=== PATIENT | male | born 1965 | race Hispanic/Latino ===

== ENCOUNTER 2017-01-07 18:17 | Observation (INO) | payer MEDICAID ==
[2017-01-07 18:17] VITALS: BMI 38.0
--- NOTE | 2017-01-07 18:36 | ED PDOC ---
Arrival/HPI - General Chief Complaint: Chest Pain Time Seen by Provider: 01/07/17 18:21 Historian: Patient - History of Present Illness Narrative History of Present Illness (Text): 01/07/17 18:21 Bryan Drummond is a 51 year old male, whose past medical history includes a former smoker, who presents to the emergency department complaining of chest pain today. 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 Patient states that he is otherwise at baseline today. Patient says that he "has not seen a doctor in some time." Patient denies any fevers, vomiting, recent travels, history of blood clots, surgery, or any other complaints at this time. Time/Duration: 4-6 hours Symptom Onset: Gradual Symptom Course: Unchanged Severity Level: Mild Activities at Onset: Light Context: Home Past Medical History - Provider Review Nursing Documentation Reviewed: Yes - Infectious Disease Hx of Infectious Diseases: None - Tetanus Immunization Tetanus Immunization: Unknown - Past Medical History Past Medical History: No Previous - Cardiac Hx Cardiac Disorders: No - Pulmonary Hx Respiratory Disorders: No - Neurological Hx Neurological Disorder: No - HEENT Hx HEENT Disorder: No - Renal Hx Renal Disorder: No - Endocrine/Metabolic Hx Hypothyroidism: Yes - Hematological/Oncological Hx Blood Disorders: No - Integumentary Hx Dermatological Disorder: No - Musculoskeletal/Rheumatological Hx Musculoskeletal Disorders: No - Gastrointestinal Hx Gastrointestinal Disorders: No - Genitourinary/Gynecological Hx Genitourinary Disorders: No - Psychiatric Hx Psychophysiologic Disorder: No Hx Substance Use: No - Past Surgical History Past Surgical History: No Previous - Surgical History Other/Comment: b/l eye surgery. - Anesthesia Hx Anesthesia: No - Suicidal Assessment Feels Threatened In Home Enviroment: No Family/Social History - Physician Review Nursing Documentation Reviewed: Yes Family/Social History: No Known Family HX Smoking Status: Never Smoked Hx Alcohol Use: No Hx Substance Use: No Hx Substance Use Treatment: No Allergies/Home Meds Allergies/Adverse Reactions: Allergies No Known Allergies Allergy (Verified 01/07/17 18:21) Home Medications: Home Meds Medication Instructions Recorded Confirmed Levothyroxine [Synthroid] 0.025 mg PO DAILY 02/29/16 01/07/17 Review of Systems - Physician Review All systems were reviewed & negative as marked: Yes - Review of Systems Constitutional: absent: Fevers, Night Sweats Eyes: absent: Vision Changes ENT: absent: Hearing Changes Respiratory: absent: SOB Cardiovascular: Chest Pain Gastrointestinal: absent: Abdominal Pain Genitourinary Male: absent: Dysuria Musculoskeletal: absent: Arthralgias Skin: absent: Rash Neurological: absent: Headache, Dizziness Endocrine: absent: Diaphoresis Hemo/Lymphatic: absent: Adenopathy Psychiatric: absent: Depression Physical Exam Vital Signs Reviewed: Yes Vital Signs Temp Pulse Resp BP Pulse Ox 01/07/17 22:01 80 16 143/96 H 95 01/07/17 18:29 98.3 F 85 18 155/89 H 95 Temperature: Afebrile Blood Pressure: Hypertensive Pulse: Regular Respiratory Rate: Normal Appearance: Positive for: Well-Appearing, Non-Toxic, Comfortable Pain Distress: None Mental Status: Positive for: Alert and Oriented X 3 - Systems Exam Head: Present: Atraumatic, Normocephalic Pupils: Present: PERRL Extroacular Muscles: Present: EOMI Conjunctiva: Present: Normal Mouth: Present: Moist Mucous Membranes Neck: Present: Normal Range of Motion Respiratory/Chest: Present: Clear to Auscultation, Good Air Exchange. No: Respiratory Distress, Accessory Muscle Use Cardiovascular: Present: Regular Rate and Rhythm, Normal S1, S2. No: Murmurs Abdomen: Present: Normal Bowel Sounds. No: Tenderness, Distention, Peritoneal Signs Back: Present: Normal Inspection Upper Extremity: Present: Normal Inspection. No: Cyanosis, Edema Lower Extremity: Present: Normal Inspection. No: Edema Neurological: Present: GCS=15, CN II-XII Intact, Speech Normal Skin: Present: Warm, Dry, Normal Color. No: Rashes Psychiatric: Present: Alert, Oriented x 3, Normal Insight, Normal Concentration Medical Decision Making ED Course and Treatment: 01/07/17 18:37 Impression: 51 year old male complaining of left-sided chest pain today. Differential Diagnosis included but are not limited to: Plan: -- EKG -- Chest X-ray -- Labs -- Aspirin -- Reassess and disposition Prior Visits: Notes and results from previous visits were reviewed. Patient last seen in the ED on 02/29/16 for "flu-like" symptoms, consisting of sore throat, nasal congestion, cough, and generalized aches and pains for several days. Patient was discharged home. Progress Notes: EKG: Ordered, reviewed, and independently interpreted the EKG. Rate : 85 BPM Rhythm : NSR Interpretation : No ST-segment elevations or depressions, no T-wave inversions, normal intervals. Comparison : No previous EKG for comparison. - Lab Interpretations Lab Results: 01/07/17 18:25 01/07/17 18:25 Lab Results 01/07/17 18:25: TSH 3rd Generation 3.17 01/07/17 18:25: Sodium 144, Potassium 4.3, Chloride 103, Carbon Dioxide 28, Anion Gap 17, BUN 18, Creatinine 1.0, Est GFR ( Amer) > 60, Est GFR (Non- Af Amer) > 60, Random Glucose 80, Calcium 10.1, Magnesium 2.1, Total Bilirubin 0.6, AST 40, ALT 61 H, Alkaline Phosphatase 86, Lactate Dehydrogenase 451, Total Creatine Kinase 210, Troponin I < 0.01, Total Protein 7.4, Albumin 4.6, Globulin 2.8, Albumin/Globulin Ratio 1.7 01/07/17 18:25: PT 11.1, INR 1.03, APTT 31.4 H 01/07/17 18:25: WBC 7.3, RBC 5.52, Hgb 17.4, Hct 49.9, MCV 90.4, MCH 31.5, MCHC 34.9, RDW 13.2, Plt Count 191, MPV 9.4, Gran % 62.4, Lymph % (Auto) 28.4, Schuyler % (Auto) 8.0 H, Eos % (Auto) 1.1 L, Baso % (Auto) 0.1, Gran # 4.57, Lymph # 2.1 , Schuyler # 0.6, Eos # 0.1, Baso # 0.01 I have reviewed the lab results: Yes - RAD Interpretation Radiology Orders: 01/07/17 18:27 CHEST PORTABLE [RAD] Stat - Medication Orders Current Medication Orders: Discontinued Medications Acetaminophen (Tylenol 325mg Tab) 650 mg PO Q6H PRN PRN Reason: Pain, moderate (4-7) Aspirin (Aspirin) 325 mg PO STAT STA Stop: 01/07/17 18:28 Last Admin: 01/07/17 18:48 Dose: 325 mg Aspirin (Aspirin Chewable) 81 mg PO DAILY [facility] [place] Last Admin: 01/08/17 09:44 Dose: 81 mg Famotidine (Pepcid) 20 mg PO BID [facility] Last Admin: 01/08/17 17:52 Dose: 20 mg Levothyroxine Sodium (Synthroid) 25 mcg PO 0600 [facility] [place] Last Admin: 01/08/17 06:00 Dose: 25 mcg Losartan Potassium (Cozaar) 25 mg PO DAILY RED - Scribe Statement The provider has reviewed the documentation as recorded by the Zachary Diego Provider Scribe Attestation: All medical record entries made by the Zachary were at my direction and personally dictated by me. I have reviewed the chart and agree that the record accurately reflects my personal performance of the history, physical exam, medical decision making, and the department course for this patient. I have also personally directed, reviewed, and agree with the discharge instructions and disposition. Disposition/Present on Arrival - Present on Arrival Any Indicators Present on Arrival: No History of DVT/PE: No History of Uncontrolled Diabetes: No Urinary Catheter: No History of Decub. Ulcer: No History Surgical Site Infection Following: None - Disposition Have Diagnosis and Disposition been Completed?: Yes Diagnosis: Chest pain Disposition: HOSPITALIZED Disposition Time: 10:00 Condition: STABLE
[2017-01-07 18:42] LABS: BASO # 0.01 K/mm3 (0.0-2.0); BASO % 0.1 % (0.0-3.0); EOS # 0.1 (0.0-0.7); EOS % 1.1 % (1.5-5.0); GRAN # 4.57 (1.4-6.5); GRAN % 62.4 % (50.0-68.0); HEMATOCRIT 49.9 % (42.0-52.0); LYMPH # 2.1 (1.2-3.4); LYMPH % 28.4 % (22.0-35.0); MEAN CELL VOLUME 90.4 fl (80.0-105.0); MEAN CORPUSCULAR HEMOGLOBIN 31.5 pg (25.0-35.0); MEAN CORPUSCULAR HGB CONC 34.9 g/dl (31.0-37.0); MEAN PLATELET VOLUME 9.4 fl (7.0-11.0); MONO # 0.6 (0.1-0.6); RED CELL DISTRIBUTION WIDTH 13.2 % (11.5-14.5); WHITE BLOOD COUNT 7.3 10^3/ul (4.5-11.0)
[2017-01-07 19:01] LABS: ALB/GLOB RATIO 1.7 (1.1-1.8); ALKALINE PHOSPHATASE 86 U/L (38-133); AST/SGOT 40 U/L (15-59); BILIRUBIN,TOTAL 0.6 mg/dL (0.2-1.3); BLOOD UREA NITROGEN 18 mg/dL (7-21); CALCIUM 10.1 mg/dL (8.4-10.5); CARBON DIOXIDE 28 mmol/L (21-33); CHLORIDE 103 mmol/L (95-110); GFR AFRICAN-AMERICAN > 60; GLUCOSE,RANDOM 80 mg/dL (70-110); MAGNESIUM 2.1 mg/dL (1.7-2.2); POTASSIUM 4.3 mmol/L (3.6-5.0); SODIUM 144 mmol/L (132-148); TOTAL PROTEIN 7.4 g/dL (5.8-8.3)
[2017-01-07 19:09] LABS: TROPONIN I < 0.01 ng/mL
[2017-01-07 19:10] LABS: ALT/SGPT 61 U/L (7-56)
[2017-01-07 19:15] LABS: INR 1.03 (0.93-1.08); PARTIAL THROMBOPLASTIN TIME 31.4 Seconds (23.7-30.8)
--- NOTE | 2017-01-08 03:34 | CP.PCM.HP ---
<Escobar Gresham - Last Filed: 01/08/17 03:46> History of Present Illness - History of Present Illness History of Present Illness: CC: Chest pain HPI: Patient is a 51 year old male with PMH significant for hypothyroidism who presents to [facility] via EMS complaining of chest pain. 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 He described the pain as sharp, mid-sternal, non radiating pain, rated as a 9/10 at onset. He reports sweating at timing of event. Patient reports pain lasted for one hour and has since resolved. Patient denies taking any medication for his symptoms prior to arrival in ED. Patient does indicate he gets short of breath on exertion, most notably walking long distances or going up a flight of stairs. Patient denies cough, nausea, fever, chills, abdominal pain or dizziness. Patient reports he had a previous episodes similar to this last year. He was evaluated and instructed to follow up outpatient. 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 Dalton Lopez Present on Admission - Present on Admission Any Indicators Present on Admission: No History of DVT/PE: No History of Uncontrolled Diabetes: No Urinary Catheter: No Decubitus Ulcer Present: No Review of Systems - Review of Systems All systems: reviewed and no additional remarkable complaints except Review of Systems: previously mentioned in HPI - Cardiovascular Cardiovascular: Chest Pain, Diaphoresis, Dyspnea. absent: Pain Radiating to Arm /Neck/Jaw, Leg Edema - Respiratory Respiratory: Dyspnea. absent: Hemoptysis - Gastrointestinal Gastrointestinal: absent: Abdominal Pain, Change in Bowel Habits Past Patient History - Infectious Disease Hx of Infectious Diseases: None - Tetanus Immunizations Tetanus Immunization: Unknown - Past Social History Smoking Status: Never Smoked Alcohol: None Drugs: Denies - CARDIAC Hx Cardiac Disorders: No - PULMONARY Hx Respiratory Disorders: No - NEUROLOGICAL Hx Neurological Disorder: No - HEENT Hx HEENT Problems: No - RENAL Hx Chronic Kidney Disease: No - ENDOCRINE/METABOLIC Hx Hypothyroidism: Yes - HEMATOLOGICAL/ONCOLOGICAL Hx Blood Disorders: No - INTEGUMENTARY Hx Dermatological Problems: No - MUSCULOSKELETAL/RHEUMATOLOGICAL Hx Falls: No - GASTROINTESTINAL Hx Gastrointestinal Disorders: No - GENITOURINARY/GYNECOLOGICAL Hx Genitourinary Disorders: No - PSYCHIATRIC Hx Substance Use: No - SURGICAL HISTORY Other/Comment: b/l eye surgery. - ANESTHESIA Hx Anesthesia: No Meds Allergies/Adverse Reactions: Allergies Allergy/AdvReac Type Severity Reaction Status Date / Time No Known Allergies Allergy Verified 01/07/17 18:21 Physical Exam - Constitutional Appears: Well - Head Exam Head Exam: ATRAUMATIC, NORMAL INSPECTION, NORMOCEPHALIC - Eye Exam Eye Exam: EOMI, PERRL - ENT Exam ENT Exam: Mucous Membranes Moist - Neck Exam Neck exam: Positive for: Normal Inspection - Respiratory Exam Respiratory Exam: Clear to Auscultation Bilateral, NORMAL BREATHING PATTERN - Cardiovascular Exam Cardiovascular Exam: REGULAR RHYTHM, +S1, +S2 - GI/Abdominal Exam GI & Abdominal Exam: Normal Bowel Sounds, Soft - Rectal Exam Rectal Exam: Deferred - Extremities Exam Extremities exam: Positive for: full ROM, normal inspection, pedal pulses present. Negative for: calf tenderness - Back Exam Back exam: FULL ROM, NORMAL INSPECTION - Neurological Exam Neurological exam: Alert, CN II-XII Intact, Normal Gait, Oriented x3, Reflexes Normal - Psychiatric Exam Psychiatric exam: Normal Affect, Normal Mood - Skin Skin Exam: Dry, Intact, Normal Color, Warm Results - Vital Signs Recent Vital Signs: Last Vital Signs Temp 98.9 F 01/08/17 01:50 Pulse 84 01/08/17 02:00 Resp 22 01/08/17 01:50 BP 147/88 01/08/17 01:50 Pulse Ox 95 01/07/17 22:01 - Labs Result Diagrams: 01/07/17 18:25 01/07/17 18:25 Labs: Laboratory Results - last 24 hr 01/08/17 00:40 Troponin I < 0.01 Assessment & Plan (1) Chest pain Status: Acute - Assessment and Plan (Free Text) Assessment: Patient is a 51 year old male with PMH significant for hypothyroidism who presents to [facility] via EMS complaining of chest pain. Patient initial troponin was negative and EKG showed NSR with no acute changes or ST elevations/ depressions, nor T wave inversions. Patient is admitted for observation for ACS rule out. Plan: 1. Chest Pain r/o ACS - EKG showing no ST segment elevation/depression, nor T wave inversions - CXR showing appropriate inflation b/l, possible infiltrate at right middle lung, cephalization b/l - Initial troponin negative x1 - Trend troponin x2 - CBC, CMP, Mg, Ph, TSH, HgA1c - O2 prn, ASA 81 mg, - Nitrates SL prn - Cardiology consult, appreciate recs 2. Hx of hypothyroidism - Continue home medications GI/DVT ppx - Protonix - SCDs case discussed and reviewed with Dr. Pearson - Date & Time Date: 01/08/17 Time: 00:15 <Migel Pearson - Last Filed: 01/08/17 05:35> Results - Vital Signs Recent Vital Signs: Last Vital Signs Temp 98.9 F 01/08/17 01:50 Pulse 84 01/08/17 02:00 Resp 22 01/08/17 01:50 BP 147/88 01/08/17 01:50 Pulse Ox 95 01/07/17 22:01 - Labs Result Diagrams: 01/07/17 18:25 01/07/17 18:25 Labs: Laboratory Results - last 24 hr 01/08/17 00:40 Troponin I < 0.01 Attending/Attestation - Attestation I have personally seen and examined this patient.: Yes I have fully participated in the care of the patient.: Yes I have reviewed all pertinent clinical information: Yes Notes (Text): 01/08/17 05:19 Patient was seen along with infertility medical assistant when he was in ER bed # 17. Agree with history, physical examination, assessment and plan
[2017-01-08] MEDS ORDERED: Levothyroxine 25 MCG TAB PO SCH (06:00)
[2017-01-08 06:36] LABS: BASO # 0.01 K/mm3 (0.0-2.0); BASO % 0.1 % (0.0-3.0); EOS # 0.1 (0.0-0.7); EOS % 2.1 % (1.5-5.0); GRAN # 3.39 (1.4-6.5); GRAN % 50.5 % (50.0-68.0); HEMATOCRIT 47.8 % (42.0-52.0); LYMPH # 2.5 (1.2-3.4); LYMPH % 37.3 % (22.0-35.0); MEAN CELL VOLUME 90.5 fl (80.0-105.0); MEAN CORPUSCULAR HEMOGLOBIN 30.7 pg (25.0-35.0); MEAN CORPUSCULAR HGB CONC 33.9 g/dl (31.0-37.0); MEAN PLATELET VOLUME 9.4 fl (7.0-11.0); MONO # 0.7 (0.1-0.6); RED CELL DISTRIBUTION WIDTH 13.4 % (11.5-14.5); WHITE BLOOD COUNT 6.7 10^3/ul (4.5-11.0)
[2017-01-08 06:37] LABS: ALB/GLOB RATIO 1.5 (1.1-1.8); ALKALINE PHOSPHATASE 76 U/L (38-133); ALT/SGPT 50 U/L (7-56); AST/SGOT 36 U/L (15-59); BILIRUBIN,TOTAL 0.6 mg/dL (0.2-1.3); BLOOD UREA NITROGEN 17 mg/dL (7-21); CALCIUM 8.8 mg/dL (8.4-10.5); CARBON DIOXIDE 26 mmol/L (21-33); CHLORIDE 106 mmol/L (98-107); GFR AFRICAN-AMERICAN > 60; GLUCOSE,RANDOM 94 mg/dL (70-110); MAGNESIUM 2.3 mg/dL (1.7-2.2); SODIUM 142 mmol/L (132-148); TOTAL PROTEIN 6.6 g/dL (5.8-8.3)
[2017-01-08 06:58] LABS: TROPONIN I < 0.01 ng/mL
[2017-01-08 07:08] VITALS: RESP 20; O2SAT 94
--- NOTE | 2017-01-08 08:22 | RAD ---
HISTORY: cp COMPARISON: 02/29/2016 FINDINGS: LUNGS: No active pulmonary disease. PLEURA: No significant pleural effusion identified, no pneumothorax apparent. CARDIOVASCULAR: Normal. OSSEOUS STRUCTURES: No significant abnormalities. VISUALIZED UPPER ABDOMEN: Normal. OTHER FINDINGS: None. IMPRESSION: No active disease.
[2017-01-08 12:23] LABS: PH,URINE 6.5 (4.7-8.0); URINE BILIRUBIN NEGATIVE (NEGATIVE); URINE BLOOD NEGATIVE (NEGATIVE); URINE GLUCOSE (UA) NEGATIVE (NEGATIVE); URINE KETONE NEGATIVE (NEGATIVE); URINE LEUKOCYTE ESTERASE NEGATIVE Leu/uL (NEGATIVE); URINE PROTEIN NEGATIVE mg/dL (<30 mg/dL); URINE UROBILINOGEN 0.2 E.U./dL (<1 E.U./dL)
[2017-01-08 12:24] LABS: URINE APPEARANCE CLEAR (CLEAR); URINE COLOR YELLOW (YELLOW)
--- NOTE | 2017-01-08 15:07 | CARD ---
APPROVED REPORT EXAM: Two-dimensional and M-mode echocardiogram with Doppler and color Doppler. INDICATION Chest Pain 2D DIMENSIONS Left Atrium (2D)3.7 (1.6-4.0cm)IVSd1.4 (0.7-1.1cm) LVDd4.1 (3.9-5.9cm)PWd1.2 (0.7-1.1cm) LVDs3.3 (2.5-4.0cm)FS (%) 19.6 % LVEF (%)40.6 (>50%) M-Mode DIMENSIONS Aortic Root2.80 (2.2-3.7cm)Aortic Cusp Exc.1.80 (1.5-2.0cm) Aortic Valve AoV Peak Ihtwfyal523.0cm/Marbin Peak GR.8mmHg Mitral Valve MV E Bcuefvyq19.2cm/sMV A Hqzikvnu68.5cm/sE/A ratio0.6 TDI E/Lateral E'0.0E/Medial E'0.0 Tricuspid Valve TR Peak [id number]/sRAP [id number] Peak Gr.9mmHg [id number] LEFT VENTRICLE The left ventricle is normal size. There is borderline to mild concentric left ventricular hypertrophy. The systolic function is mildly impaired. There is global hypokinesis of the left ventricle. Transmitral Doppler flow pattern is Grade I-abnormal relaxation pattern. No left ventricle thrombus noted on this study. RIGHT VENTRICLE The right ventricle is normal size. There is normal right ventricular wall thickness. The right ventricular systolic function is normal. ATRIA The left atrium size is normal. The right atrium size is normal. AORTIC VALVE The aortic valve is normal in structure. No aortic regurgitation is present. There is no aortic valvular stenosis. MITRAL VALVE The mitral valve is normal in structure. There is no mitral valve regurgitation noted. TRICUSPID VALVE The tricuspid valve is normal in structure. There is no tricuspid valve regurgitation noted. GREAT VESSELS The aortic root is normal in size. The IVC collapses <50% with inspiration. PERICARDIAL EFFUSION There is a trace loculated anterior pericardial effusion. <Conclusion> The left ventricle is normal size. There is borderline to mild concentric left ventricular hypertrophy. The systolic function is mildly impaired. There is global hypokinesis of the left ventricle. Transmitral Doppler flow pattern is Grade I-abnormal relaxation pattern.
--- NOTE | 2017-01-08 15:41 | CARD ---
APPROVED REPORT EKG Measurement Heart [id number] <Conclusion> Normal sinus rhythm Voltage criteria for left ventricular hypertrophy Prolonged QT Abnormal ECG
--- NOTE | 2017-01-08 15:41 | CP.PCM.DIS ---
<DEIS MENESES - Last Filed: 01/08/17 19:59> Provider - Provider Date of Admission: 01/07/17 20:34 Attending physician: Jane Stanton MD Primary care physician: Dalton Lopez APN Consults: Cardio: Susanne Time Spent in preparation of Discharge (in minutes): 45 Hospital Course - Lab Results Lab Results: Most Recent Lab Values WBC 6.7 10^3/ul (4.5-11.0) 01/08/17 05:30 RBC 5.28 10^6/uL (3.5-6.1) 01/08/17 05:30 Hgb 16.2 g/dL (14.0-18.0) 01/08/17 05:30 Hct 47.8 % (42.0-52.0) 01/08/17 05:30 MCV 90.5 fl (80.0-105.0) 01/08/17 05:30 MCH 30.7 pg (25.0-35.0) 01/08/17 05:30 MCHC 33.9 g/dl (31.0-37.0) 01/08/17 05:30 RDW 13.4 % (11.5-14.5) 01/08/17 05:30 Plt Count 172 10^3/uL (120.0-450.0) 01/08/17 05:30 MPV 9.4 fl (7.0-11.0) 01/08/17 05:30 Gran % 50.5 % (50.0-68.0) 01/08/17 05:30 Lymph % (Auto) 37.3 % (22.0-35.0) H 01/08/17 05:30 [place] % (Auto) 10.0 % (1.0-6.0) H 01/08/17 05:30 Eos % (Auto) 2.1 % (1.5-5.0) 01/08/17 05:30 Baso % (Auto) 0.1 % (0.0-3.0) 01/08/17 05:30 Gran # 3.39 (1.4-6.5) 01/08/17 05:30 Lymph # 2.5 (1.2-3.4) 01/08/17 05:30 [place] # 0.7 (0.1-0.6) H 01/08/17 05:30 Eos # 0.1 (0.0-0.7) 01/08/17 05:30 Baso # 0.01 K/mm3 (0.0-2.0) 01/08/17 05:30 PT 11.1 Seconds (9.9-11.8) 01/07/17 18:25 INR 1.03 (0.93-1.08) 01/07/17 18:25 APTT 31.4 Seconds (23.7-30.8) H 01/07/17 18:25 Sodium 142 mmol/L (132-148) 01/08/17 05:30 Potassium 4.0 mmol/L (3.6-5.0) 01/08/17 05:30 Chloride 106 mmol/L (98-107) 01/08/17 05:30 Carbon Dioxide 26 mmol/L (21-33) 01/08/17 05:30 Anion Gap 14 (10-20) 01/08/17 05:30 BUN 17 mg/dL (7-21) 01/08/17 05:30 Creatinine 1.0 mg/dL (0.5-1.4) 01/08/17 05:30 Est GFR ( Amer) > 60 01/08/17 05:30 Est GFR (Non-Af Amer) > 60 01/08/17 05:30 Random Glucose 94 mg/dL (70-110) 01/08/17 05:30 Hemoglobin A1c 5.7 % (4.2-6.5) 01/08/17 05:30 Calcium 8.8 mg/dL (8.4-10.5) 01/08/17 05:30 Phosphorus 4.0 mg/dL (2.5-4.5) 01/08/17 05:30 Magnesium 2.3 mg/dL (1.7-2.2) H 01/08/17 05:30 Total Bilirubin 0.6 mg/dL (0.2-1.3) 01/08/17 05:30 AST 36 U/L (15-59) 01/08/17 05:30 ALT 50 U/L (7-56) 01/08/17 05:30 Alkaline Phosphatase 76 U/L (38-133) 01/08/17 05:30 Lactate Dehydrogenase 451 U/L (333-699) 01/07/17 18:25 Total Creatine Kinase 210 U/L (35-230) 01/07/17 18:25 Troponin I < 0.01 ng/mL 01/08/17 05:30 Total Protein 6.6 g/dL (5.8-8.3) 01/08/17 05:30 Albumin 4.0 g/dL (3.0-4.8) 01/08/17 05:30 Globulin 2.6 gm/dL 01/08/17 05:30 Albumin/Globulin Ratio 1.5 (1.1-1.8) 01/08/17 05:30 TSH 3rd Generation 3.17 mIU/mL (0.46-4.68) 01/07/17 18:25 Urine Color Yellow (YELLOW) 01/08/17 12:10 Urine Appearance Clear (CLEAR) 01/08/17 12:10 Urine pH 6.5 (4.7-8.0) 01/08/17 12:10 Ur Specific [place] 1.020 (1.005-1.035) 01/08/17 12:10 Urine Protein Negative mg/dL (<30 mg/dL) 01/08/17 12:10 Urine Glucose (UA) Negative mg/dL (NEGATIVE) 01/08/17 12:10 Urine Ketones Negative mg/dL (NEGATIVE) 01/08/17 12:10 Urine Blood Negative (NEGATIVE) 01/08/17 12:10 Urine Nitrate Negative (NEGATIVE) 01/08/17 12:10 Urine Bilirubin Negative (NEGATIVE) 01/08/17 12:10 Urine Urobilinogen 0.2 E.U./dL (<1 E.U./dL) 01/08/17 12:10 Ur Leukocyte Esterase Negative Gil/uL (NEGATIVE) 01/08/17 12:10 - Hospital Course Hospital Course: Patient is a 51 year old male with PMH significant for hypothyroidism who presents to [facility] ED via EMS complaining of chest pain. 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 He described the pain as sharp, mid-sternal, non radiating pain, rated as a 9/10 at onset. He reported sweating at timing of event. Patient reported pain lasted for one hour and has since resolved. Patient denied taking any medication for his symptoms prior to arrival in ED. Patient does indicate he gets short of breath on exertion, most notably walking long distances or going up a flight of stairs. Patient denied cough, nausea, fever, chills, abdominal pain or dizziness. Patient reported he had a previous episode similar to this last year. In the ED, labs and imaging were obtained. Labs were unremarkable. First troponin was negative. EKG showed no ST segment elevation/depression, nor T wave inversions. CXR showed appropriate inflation b/l, possible infiltrate at right middle lung, cephalization b/l. Pt was admitted for evaluation and treatment for chest pain r/o ACS. Pt was started on ASA and continued on his home synthroid. Troponin trend x2 was negative. TSH was normal. Echo showed EF 40.6%. Lipid were within normal limits. Cardio was consulted and recommendations were appreciated. Today, pt was seen and examined at bedside. Pt states that CP and SOB has subsided. Pt denies n/v/d, chills, fever, abdominal pain, dysuria, polyuria, constipation, CRUZ, and dizziness. Pt discharged and advised to follow up with PMD and cardio out-patient. Discharge Exam - Head Exam Head Exam: ATRAUMATIC, NORMAL INSPECTION, NORMOCEPHALIC - Eye Exam Eye Exam: EOMI, PERRL - ENT Exam ENT Exam: Mucous Membranes Dry - Neck Exam Neck exam: Full Rom - Respiratory Exam Respiratory Exam: Clear to PA & Lateral. absent: Rales, Rhonchi, Wheezes - Cardiovascular Exam Cardiovascular Exam: RRR. absent: Gallop, Rubs, Systolic Murmur - GI/Abdominal Exam GI & Abdominal Exam: Soft. absent: Distended, Guarding, Organomegaly, Rebound, Tenderness - Back Exam Back exam: NORMAL INSPECTION - Neurological Exam Neurological exam: Alert, CN II-XII Intact, Oriented x3 - Psychiatric Exam Psychiatric exam: Normal Affect, Normal Mood - Skin Skin Exam: Dry, Intact, Normal Color, Warm Discharge Plan - Follow Up Plan Condition: GOOD Disposition: HOME/ ROUTINE Instructions: Losartan (By mouth), Carvedilol (By mouth), Chest Pain (DC), Chest Pain (GEN) Additional Instructions: 1. Follow up with PMD within 1 week 2. Follow up with cardiology within 1 week 3. Take medications as prescribed 4. Resume medications 5. Return to ED of condition or symptoms worsen Referrals: Dalton Lopez APN [Primary Care Provider] - Carlitos Skinner MD [Staff Provider] - <Jane Stanton - Last Filed: 01/09/17 07:23> Provider - Provider Date of Admission: 01/07/17 20:34 Attending physician: Jane Stanton MD Primary care physician: Dalton Lopez BED CONTROL SPECIALIST [place] Hospital Course - Lab Results Lab Results: Most Recent Lab Values WBC 6.7 10^3/ul (4.5-11.0) 01/08/17 05:30 RBC 5.28 10^6/uL (3.5-6.1) 01/08/17 05:30 Hgb 16.2 g/dL (14.0-18.0) 01/08/17 05:30 Hct 47.8 % (42.0-52.0) 01/08/17 05:30 MCV 90.5 fl (80.0-105.0) 01/08/17 05:30 MCH 30.7 pg (25.0-35.0) 01/08/17 05:30 MCHC 33.9 g/dl (31.0-37.0) 01/08/17 05:30 RDW 13.4 % (11.5-14.5) 01/08/17 05:30 Plt Count 172 10^3/uL (120.0-450.0) 01/08/17 05:30 MPV 9.4 fl (7.0-11.0) 01/08/17 05:30 Gran % 50.5 % (50.0-68.0) 01/08/17 05:30 Lymph % (Auto) 37.3 % (22.0-35.0) H 01/08/17 05:30 [place] % (Auto) 10.0 % (1.0-6.0) H 01/08/17 05:30 Eos % (Auto) 2.1 % (1.5-5.0) 01/08/17 05:30 Baso % (Auto) 0.1 % (0.0-3.0) 01/08/17 05:30 Gran # 3.39 (1.4-6.5) 01/08/17 05:30 Lymph # 2.5 (1.2-3.4) 01/08/17 05:30 [place] # 0.7 (0.1-0.6) H 01/08/17 05:30 Eos # 0.1 (0.0-0.7) 01/08/17 05:30 Baso # 0.01 K/mm3 (0.0-2.0) 01/08/17 05:30 PT 11.1 Seconds (9.9-11.8) 01/07/17 18:25 INR 1.03 (0.93-1.08) 01/07/17 18:25 APTT 31.4 Seconds (23.7-30.8) H 01/07/17 18:25 Sodium 142 mmol/L (132-148) 01/08/17 05:30 Potassium 4.0 mmol/L (3.6-5.0) 01/08/17 05:30 Chloride 106 mmol/L (98-107) 01/08/17 05:30 Carbon Dioxide 26 mmol/L (21-33) 01/08/17 05:30 Anion Gap 14 (10-20) 01/08/17 05:30 BUN 17 mg/dL (7-21) 01/08/17 05:30 Creatinine 1.0 mg/dL (0.5-1.4) 01/08/17 05:30 Est GFR ( Amer) > 60 01/08/17 05:30 Est GFR (Non-Af Amer) > 60 01/08/17 05:30 Random Glucose 94 mg/dL (70-110) 01/08/17 05:30 Hemoglobin A1c 5.7 % (4.2-6.5) 01/08/17 05:30 Calcium 8.8 mg/dL (8.4-10.5) 01/08/17 05:30 Phosphorus 4.0 mg/dL (2.5-4.5) 01/08/17 05:30 Magnesium 2.3 mg/dL (1.7-2.2) H 01/08/17 05:30 Total Bilirubin 0.6 mg/dL (0.2-1.3) 01/08/17 05:30 AST 36 U/L (15-59) 01/08/17 05:30 ALT 50 U/L (7-56) 01/08/17 05:30 Alkaline Phosphatase 76 U/L (38-133) 01/08/17 05:30 Lactate Dehydrogenase 451 U/L (333-699) 01/07/17 18:25 Total Creatine Kinase 210 U/L (35-230) 01/07/17 18:25 Troponin I < 0.01 ng/mL 01/08/17 05:30 Total Protein 6.6 g/dL (5.8-8.3) 01/08/17 05:30 Albumin 4.0 g/dL (3.0-4.8) 01/08/17 05:30 Globulin 2.6 gm/dL 01/08/17 05:30 Albumin/Globulin Ratio 1.5 (1.1-1.8) 01/08/17 05:30 Triglycerides 280 mg/dL (35-160) H 01/08/17 05:30 Cholesterol 168 mg/dL (130-200) 01/08/17 05:30 LDL Cholesterol Direct 96 mg/dL (0-129) 01/08/17 05:30 HDL Cholesterol 31 mg/dL (29-60) 01/08/17 05:30 TSH 3rd Generation 3.17 mIU/mL (0.46-4.68) 01/07/17 18:25 Urine Color Yellow (YELLOW) 01/08/17 12:10 Urine Appearance Clear (CLEAR) 01/08/17 12:10 Urine pH 6.5 (4.7-8.0) 01/08/17 12:10 Ur Specific [place] 1.020 (1.005-1.035) 01/08/17 12:10 Urine Protein Negative mg/dL (<30 mg/dL) 01/08/17 12:10 Urine Glucose (UA) Negative mg/dL (NEGATIVE) 01/08/17 12:10 Urine Ketones Negative mg/dL (NEGATIVE) 01/08/17 12:10 Urine Blood Negative (NEGATIVE) 01/08/17 12:10 Urine Nitrate Negative (NEGATIVE) 01/08/17 12:10 Urine Bilirubin Negative (NEGATIVE) 01/08/17 12:10 Urine Urobilinogen 0.2 E.U./dL (<1 E.U./dL) 01/08/17 12:10 Ur Leukocyte Esterase Negative Gil/uL (NEGATIVE) 01/08/17 12:10 Attending/Attestation - Attestation I have personally seen and examined this patient.: Yes I have fully participated in the care of the patient.: Yes I have reviewed all pertinent clinical information, including history, physical exam and plan: Yes Notes (Text): 01/08/17 51 year old male with past medical history of hypothyroidism who presented with complaint of chest pain. Serial cardiac were negative and ACS was ruled out. He reports his chest pain has resolved. CXR was negative. Echocardiogram showed EF 40.6%. He was seen by cardiology who started cozaar. Patient is discharged home to follow up with his pmd. Follow up with cardiology for outpatient stress test. Jane Stanton MD Hospitalist.
[2017-01-08 16:08] LABS: CHOLESTEROL 168 mg/dL (130-200)
[2017-01-08 18:44] VITALS: BP 122/78; PULSE 81; TEMP 99
--- NOTE | 2017-01-09 05:21 | CON ---
DATE: REASON FOR CONSULTATION: Chest pain. 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 The patient when asked about if he is diaphoresis, he stated he is always sweaty. The patient denies any dizziness and is unable to provide any prior history of heart attack in the past. The patient did present in the past with chest pain, but does not recall what specific cardiac workup done for him. The patient does not recall undergoing stress test in the past. SOCIAL HISTORY: The patient is a former smoker. REVIEW OF SYSTEMS: No fever or chills. No vomiting or diarrhea. MEDICATIONS: Aspirin 81 mg once a day, Pepcid 20 mg p.o. twice a day, Synthroid 25 mcg once a day and Tylenol one tablet q. 6 hours p.r.n. PHYSICAL EXAMINATION: GENERAL: The patient is a middle aged male who does not appear to be in any acute distress. VITAL SIGNS: Blood pressure 130/78, heart rate 81, temperature 98.8, and respirations 20. HEENT: Normocephalic. NECK: No JVD. CHEST: Clear. HEART: S1 and S2 regular. ABDOMEN: Soft. EXTREMITIES: No edema. LABORATORY DATA: Hemoglobin and hematocrit are 16.1 and 47.8, white count 6.7 and platelet count 172,000. Today, SMA-7 was entirely within normal limits. Three sets of troponins are negative. Triglycerides are elevated at 280. The rest of lipid profile is within normal limits. TSH level is within normal limits. PT and INR are within normal limits. EKG revealed sinus rhythm, voltage criteria for LVH, prolonged QT interval. Echocardiograph study revealed normal left ventricular size with borderline to mild concentric LVH, mildly impaired ejection fraction with global hypokinesis and grade 1 abnormal relaxation pattern. Chest x-ray was unremarkable. Excessive prominent bronchovascular markings. ASSESSMENT: 1. Chest pain, myocardial infarction was ruled out. 2. Mildly depressed left ventricular systolic function. 3. Hypothyroidism. RECOMMENDATIONS: Continue aspirin 81 mg once a day and Synthroid 25 mcg once a day. Start Cozaar 25 mg once a day. Coreg 3.125 mg bid The patient can be scheduled for an outpatient stress test. Discussed with patient and his daughter at length The patient will follow up with his PMD I gave him a prescription Carlitos Skinner MD MARIAJOSE
== END 2017-01-08 21:16 | disposition home or self-care (01) ==
LOC: ED 18:17 → ERH 20:34 → 2RSO 22:41
PROVIDERS: ADMIT Internal Medicine; ATTEND Internal Medicine
DX: R07.9 Chest pain, unspecified (principal); E03.9 Hypothyroidism, unspecified; Z87.891 Personal history of nicotine dependence
CPT/HCPCS: 36415; 71010; 80053; 80061; 81003; 82550; 83036; 83615; 83735; 84100; 84443; 84484; 85025; 85610; 85730; 93005; 93306; 99285; G0378

== ENCOUNTER 2017-05-27 13:52 | Emergency (ER) | payer MEDICAID ==
[2017-05-27 14:35] VITALS: RESP 18; TEMP 98.8; BMI 38.4
[2017-05-27] MEDS ORDERED: Morphine 4 mg/ml ISec IVP STA (14:58)
[2017-05-27] MEDS ORDERED: Sodium Chloride 0.9% 1,000 ML IV STA (14:58)
--- NOTE | 2017-05-27 15:02 | ED PDOC ---
Arrival/HPI - General Chief Complaint: Abdominal Pain Time Seen by Provider: 05/27/17 14:58 Historian: Patient - History of Present Illness Narrative History of Present Illness (Text): 05/27/17 14:58 This 51 yo male with pmh hypothyroidism, presents to this Ed c/o LLQ abdominal pain since yesterday. Patient stated pain is worsening today. Pain is worsen with jumping, or deep inspiration. Patient denies nausea, vomiting, sob, cp, urinary symptoms, or abnormal gait. Time/Duration: Other (see hpi) Context: Home Past Medical History - Provider Review Nursing Documentation Reviewed: Yes - Infectious Disease Hx of Infectious Diseases: None - Tetanus Immunization Tetanus Immunization: Unknown - Past Medical History Past Medical History: No Previous - Cardiac Hx Cardiac Disorders: No - Pulmonary Hx Respiratory Disorders: No - Neurological Hx Neurological Disorder: No - HEENT Hx HEENT Disorder: No - Renal Hx Renal Disorder: No - Endocrine/Metabolic Hx Hypothyroidism: Yes - Hematological/Oncological Hx Blood Disorders: No - Integumentary Hx Dermatological Disorder: No - Musculoskeletal/Rheumatological Hx Musculoskeletal Disorders: No - Gastrointestinal Hx Gastrointestinal Disorders: No - Genitourinary/Gynecological Hx Genitourinary Disorders: No - Psychiatric Hx Psychophysiologic Disorder: No Hx Substance Use: No - Past Surgical History Past Surgical History: No Previous - Surgical History Other/Comment: b/l eye surgery. - Anesthesia Hx Anesthesia: Yes Hx Anesthesia Reactions: No Hx Malignant Hyperthermia: No - Suicidal Assessment Feels Threatened In Home Enviroment: No Family/Social History - Physician Review Nursing Documentation Reviewed: Yes Family/Social History: Other (noncontributory) Smoking Status: Never Smoked Hx Alcohol Use: No Hx Substance Use: No Hx Substance Use Treatment: No Allergies/Home Meds Allergies/Adverse Reactions: Allergies No Known Allergies Allergy (Verified 05/27/17 14:35) Home Medications: Home Meds Medication Instructions Recorded Confirmed Levothyroxine [Synthroid] 0.025 mg PO DAILY 02/29/16 05/27/17 Review of Systems - Review of Systems Constitutional: Normal. absent: Fatigue, Weight Change, Fevers Eyes: Normal ENT: Normal Respiratory: Normal Cardiovascular: Normal Gastrointestinal: Abdominal Pain, Other (hx. hemorrhoids). absent: Nausea, Vomiting Genitourinary Male: Normal Musculoskeletal: Normal Skin: Normal Neurological: Normal Endocrine: Normal Hemo/Lymphatic: Normal Psychiatric: Normal Physical Exam Vital Signs Temp Pulse Resp BP Pulse Ox 05/27/17 14:30 98.8 F 107 H 18 165/94 H 95 Temperature: Afebrile Blood Pressure: Normal Pulse: Regular Respiratory Rate: Normal Appearance: Positive for: Well-Appearing, Non-Toxic, Comfortable Pain Distress: None Mental Status: Positive for: Alert and Oriented X 3 - Systems Exam Head: Present: Atraumatic, Normocephalic Pupils: Present: PERRL Extroacular Muscles: Present: EOMI Conjunctiva: Present: Normal Mouth: Present: Moist Mucous Membranes Neck: Present: Normal Range of Motion Respiratory/Chest: Present: Clear to Auscultation, Good Air Exchange. No: Respiratory Distress, Accessory Muscle Use Cardiovascular: Present: Regular Rate and Rhythm, Normal S1, S2. No: Murmurs Abdomen: Present: Tenderness ((+) mild LLQ abdominal tenderness.), Normal Bowel Sounds, Rebound. No: Distention, Peritoneal Signs, Guarding, Hernias, Scars Back: Present: Normal Inspection. No: CVA Tenderness Upper Extremity: Present: Normal Inspection, Normal ROM. No: Cyanosis, Edema Lower Extremity: Present: Normal Inspection, Normal ROM. No: Edema Neurological: Present: GCS=15, CN II-XII Intact, Speech Normal, Motor Func Grossly Intact, Normal Sensory Function, Normal Cerebellar Funct, Gait Normal, Memory Normal Skin: Present: Warm, Dry, Normal Color. No: Rashes Psychiatric: Present: Alert, Oriented x 3, Normal Insight, Normal Concentration Medical Decision Making ED Course and Treatment: 05/27/17 17:42 Re-evaluation. Patient feels better. Discussed results and plan with patient who expresses understanding. All questions answered and there is agreement with the plan to discharge home with instructions. Patient stable for discharge. Return if symptoms persist or worsen. Patient was recommended to f/u Dr. Lopez, and private GI doctor. Re-evaluation Time: 17:42 Reassessment Condition: Re-examined, Improved - Lab Interpretations Lab Results: 05/27/17 15:30 05/27/17 15:30 Lab Results 05/27/17 15:30: Sodium 143, Potassium 4.4, Chloride 104, Carbon Dioxide 28, Anion Gap 14, BUN 16, Creatinine 0.9, Est GFR ( Amer) > 60, Est GFR (Non- Af Amer) > 60, Random Glucose 113 H, Calcium 9.5, Total Bilirubin 0.6, AST 35, ALT 49, Alkaline Phosphatase 81, Total Protein 7.5, Albumin 4.3, Globulin 3.2, Albumin/Globulin Ratio 1.3, Lipase 161 05/27/17 15:30: Urine Color Yellow, Urine Appearance Clear, Urine pH 7.0, Ur Specific [place] 1.015, Urine Protein Negative, Urine Glucose (UA) 250 H, Urine Ketones Negative, Urine Blood Negative, Urine Nitrate Negative, Urine Bilirubin Negative, Urine Urobilinogen 0.2, Ur Leukocyte Esterase Negative 05/27/17 15:30: PT 11.4, INR 1.00, APTT 35.2 05/27/17 15:30: WBC 7.1, RBC 5.38, Hgb 17.0, Hct 49.6, MCV 92.2, MCH 31.6, MCHC 34.3, RDW 13.4, Plt Count 179, MPV 10.0, Gran % 59.4, Lymph % (Auto) 29.0, [place] % (Auto) 10.0 H, Eos % (Auto) 1.5, Baso % (Auto) 0.1, Gran # 4.21, Lymph # 2.1, [place] # 0.7 H, Eos # 0.1, Baso # 0.01 I have reviewed the lab results: Yes Interpretation: No clinic. lab abnormalty - RAD Interpretation Narrative RAD Interpretations (Text): 05/27/17 17:29 Patient Name / ID : SKY LEON / [id number] Exam Date : 05/27/2017 16:33:24 ( Approved ) Study Comment : Sex / Age : M / 51Y Creator : James Friedman MD Dictator : James Friedman MD Tablet Technician : Registered Sales Assistant : James Friedman MD Approver2 : Report Date : 05/27/2017 17:24:47 My Comment : PROCEDURE: CT Abdomen and Pelvis with contrast HISTORY: LLQ abdominal pain r/o diverticulitis COMPARISON: None. TECHNIQUE: Following the intravenous administration of iodinated contrast material, a CT examination of the abdomen and pelvis performed from the domes of the diaphragms to the symphysis pubis with reformatted datasets provided not only axial but also sagittal and coronal planes. Oral contrast was not administered as per referring physician request. Contrast dose: Omnipaque 300, 100 cc. Radiation dose: Total exam DLP = mGy-cm. This CT exam was performed using one or more of the following dose reduction techniques: Automated exposure control, adjustment of the mA and/or kV according to patient size, and/or use of iterative reconstruction technique. FINDINGS: LOWER THORAX: Unremarkable. LIVER: Hepatic steatosis identified without intrahepatic biliary dilatation or hepatic mass identified. GALLBLADDER AND BILE DUCTS: Fatty calculi are identified within the gallbladder which is contracted. PANCREAS: Unremarkable. No gross lesion or ductal dilatation. SPLEEN: Unremarkable. ADRENALS: Unremarkable. No mass. KIDNEYS AND URETERS: No definite obstructive uropathy is identified bilaterally. Multiple punctate intrarenal calculi are again seen scattered at the left greater the right kidney collecting systems a few tiny lucencies too small to characterize in both kidneys renal cortices. No dominant mass is seen in either kidney. A small right parapelvic cysts identified. VASCULATURE: Unremarkable. No aortic aneurysm. BOWEL: The stomach appears distended with retained fluid and food. The bowel is not appear obstructed. [id number] fecal loading seen throughout various large -bowel segments with a small bowel unremarkable but limited evaluation due to lack of oral contrast agent. A developing left inguinal hernia is appreciated containing only mesenteric fat. APPENDIX: Normal appendix. PERITONEUM: Unremarkable. No free fluid. No free air. LYMPH NODES: Unremarkable. No enlarged lymph nodes. BLADDER: Unremarkable. REPRODUCTIVE: Unremarkable. BONES: No destructive bony lesion or fracture identified. OTHER FINDINGS: None. IMPRESSION: Generally stable appearing nonacute abdomen pelvis CT is appreciated with reiteration of nonobstructing intrarenal calculi identified scattered at the left greater than right kidneys intrarenal collecting systems. Limited right parapelvic cyst noted. Cholelithiasis is now identified within a contracted gallbladder. No gross cholecystitis pattern related. Hepatic steatosis appears recurrent or increased. Radiology Orders: 05/27/17 15:05 ABD & PELVIS IV CONTRAST ONLY [CT] Stat - Medication Orders Current Medication Orders: Discontinued Medications Famotidine (Pepcid) 20 mg IVP STAT STA Stop: 05/27/17 14:59 Last Admin: 05/27/17 15:45 Dose: 20 mg IVP Administration Document 05/27/17 15:45 SF (Rec: 05/27/17 15:45 SF [id number]) Charges for Administration # of IVP Administrations 1 Sodium Chloride (Sodium Chloride 0.9%) 1,000 mls @ 1,000 mls/hr IV .Q1H STA Stop: 05/27/17 15:57 Last Admin: 05/27/17 15:45 Dose: 1,000 mls/hr eMAR Start Stop Document 05/27/17 15:45 SF (Rec: 05/27/17 15:45 SF [facility] [id number]) Intravenous Solution Start Date 05/27/17 Start Time 15:45 End Date 05/27/17 End time 16:45 Total Infusion Time 60 Morphine Sulfate (Morphine) 4 mg IVP STAT STA Stop: 05/27/17 14:59 Last Admin: 05/27/17 15:45 Dose: 4 mg MAR Pain Assessment Document 05/27/17 15:45 SF (Rec: 05/27/17 15:45 SF [facility] [id number]) Pain Reassessment Is this a pain reassessment? Yes Sleep Is patient sleeping during reassessment? No Presence of Pain Presence of Pain Yes Pain Scale Used Pain Scale Used Numeric IVP Administration Document 05/27/17 15:45 SF (Rec: 05/27/17 15:45 SF [facility] [id number]) Charges for Administration # of IVP Administrations 1 Ondansetron HCl (Zofran Inj) 4 mg IVP STAT STA Stop: 05/27/17 14:59 Last Admin: 05/27/17 15:45 Dose: 4 mg IVP Administration Document 05/27/17 15:45 SF (Rec: 05/27/17 15:45 SF [facility] [id number]) Charges for Administration # of IVP Administrations 1 Disposition/Present on Arrival - Present on Arrival Any Indicators Present on Arrival: No History of DVT/PE: No History of Uncontrolled Diabetes: No Urinary Catheter: No History of Decub. Ulcer: No History Surgical Site Infection Following: None - Disposition Have Diagnosis and Disposition been Completed?: Yes Diagnosis: Nonspecific abdominal pain Disposition: HOME/ ROUTINE Disposition Time: 17:45 Patient Plan: Discharge Condition: IMPROVED Discharge Instructions (ExitCare): Abdominal Pain (ED) Additional Instructions: Call private doctor for follow up visit in 1-2 days. Take medication for pain as needed with food. Call private GI doctor for ravlaution and review of your CT scan result. Return to emergency if symptoms worsen. Prescriptions: Famotidine [Pepcid] 40 mg PO DAILY #10 tablet Ibuprofen [Motrin] 600 mg PO Q8 PRN #20 tab PRN Reason: Pain, Severe (8-10) Referrals: Dalton Lopez APN [Primary Care Provider] - Follow up with primary Forms: [employer] (Sami)
[2017-05-27 15:52] LABS: BASO # 0.01 K/mm3 (0.0-2.0); BASO % 0.1 % (0.0-3.0); EOS # 0.1 (0.0-0.7); EOS % 1.5 % (1.5-5.0); GRAN # 4.21 (1.4-6.5); GRAN % 59.4 % (50.0-68.0); LYMPH # 2.1 (1.2-3.4); MEAN CELL VOLUME 92.2 fl (80.0-105.0); MEAN CORPUSCULAR HEMOGLOBIN 31.6 pg (25.0-35.0); MEAN CORPUSCULAR HGB CONC 34.3 g/dl (31.0-37.0); MONO # 0.7 (0.1-0.6); RBC 5.38 10^6/uL (3.5-6.1); RED CELL DISTRIBUTION WIDTH 13.4 % (11.5-14.5); URINE BILIRUBIN NEGATIVE (NEGATIVE); URINE BLOOD NEGATIVE (NEGATIVE); URINE GLUCOSE (UA) 250 mg/dL (NEGATIVE); URINE LEUKOCYTE ESTERASE NEGATIVE Leu/uL (NEGATIVE); URINE NITRATE NEGATIVE (NEGATIVE); URINE PROTEIN NEGATIVE mg/dL (<30 mg/dL); URINE UROBILINOGEN 0.2 E.U./dL (<1 E.U./dL); WHITE BLOOD COUNT 7.1 10^3/ul (4.5-11.0)
[2017-05-27 15:54] LABS: URINE COLOR YELLOW (YELLOW)
[2017-05-27 15:55] LABS: URINE APPEARANCE CLEAR (CLEAR)
[2017-05-27 16:04] LABS: ALB/GLOB RATIO 1.3 (1.1-1.8); ALBUMIN 4.3 g/dL (3.0-4.8); ALT/SGPT 49 U/L (7-56); AST/SGOT 35 U/L (17-59); BLOOD UREA NITROGEN 16 mg/dL (7-21); CALCIUM 9.5 mg/dL (8.4-10.5); GFR AFRICAN-AMERICAN > 60; GFR NON-AFRICAN AMERICAN > 60; LIPASE 161 U/L (23-300); PARTIAL THROMBOPLASTIN TIME 35.2 Seconds (25.1-36.5); PROTHROMBIN TIME 11.4 SECONDS (9.4-12.5)
--- NOTE | 2017-05-27 17:26 | CT ---
PROCEDURE: CT Abdomen and Pelvis with contrast HISTORY: LLQ abdominal pain r/o diverticulitis COMPARISON: None. TECHNIQUE: Following the intravenous administration of iodinated contrast material, a CT examination of the abdomen and pelvis performed from the domes of the diaphragms to the symphysis pubis with reformatted datasets provided not only axial but also sagittal and coronal planes. Oral contrast was not administered as per referring physician request. Contrast dose: Omnipaque 300, 100 cc. Radiation dose: Total exam DLP = mGy-cm. This CT exam was performed using one or more of the following dose reduction techniques: Automated exposure control, adjustment of the mA and/or kV according to patient size, and/or use of iterative reconstruction technique. FINDINGS: LOWER THORAX: Unremarkable. LIVER: Hepatic steatosis identified without intrahepatic biliary dilatation or hepatic mass identified. GALLBLADDER AND BILE DUCTS: Fatty calculi are identified within the gallbladder which is contracted. PANCREAS: Unremarkable. No gross lesion or ductal dilatation. SPLEEN: Unremarkable. ADRENALS: Unremarkable. No mass. KIDNEYS AND URETERS: No definite obstructive uropathy is identified bilaterally. Multiple punctate intrarenal calculi are again seen scattered at the left greater the right kidney collecting systems a few tiny lucencies too small to characterize in both kidneys renal cortices. No dominant mass is seen in either kidney. A small right parapelvic cysts identified. VASCULATURE: Unremarkable. No aortic aneurysm. BOWEL: The stomach appears distended with retained fluid and food. The bowel is not appear obstructed. [id number] fecal loading seen throughout various large-bowel segments with a small bowel unremarkable but limited evaluation due to lack of oral contrast agent. A developing left inguinal hernia is appreciated containing only mesenteric fat. APPENDIX: Normal appendix. PERITONEUM: Unremarkable. No free fluid. No free air. LYMPH NODES: Unremarkable. No enlarged lymph nodes. BLADDER: Unremarkable. REPRODUCTIVE: Unremarkable. BONES: No destructive bony lesion or fracture identified. OTHER FINDINGS: None. IMPRESSION: Generally stable appearing nonacute abdomen pelvis CT is appreciated with reiteration of nonobstructing intrarenal calculi identified scattered at the left greater than right kidneys intrarenal collecting systems. Limited right parapelvic cyst noted. Cholelithiasis is now identified within a contracted gallbladder. No gross cholecystitis pattern related. Hepatic steatosis appears recurrent or increased.
[2017-05-27 17:47] VITALS: O2SAT 96
[2017-05-27 18:46] VITALS: BP 155/79; PULSE 86
== END 2017-05-27 19:04 | disposition home or self-care (01) ==
LOC: ED 13:52
DX: R10.32 Left lower quadrant pain (principal); E03.9 Hypothyroidism, unspecified
CPT/HCPCS: 74177; 80053; 81003; 83690; 85025; 85610; 85730; 96361; 96374; 96375; 99285; J1885; J2270; J2405; J7040; Q9967